=== PATIENT | female | born 1980 | race Caucasian/White ===

== ENCOUNTER 2023-03-16 17:56 | Emergency (ER) | payer BC, SELFPAY ==
[2023-03-16 18:04] VITALS: BP 120/79; PULSE 111; RESP 18; TEMP 37.3; O2SAT 94; BMI 36.6
--- NOTE | 2023-03-16 18:25 | ED.GENADULT ---
HPI - General Adult General Time Seen by Provider: 18:25 Date Seen: 03/16/23 Chief complaint: Insect Bite Stated complaint: Bee stings, multiple Time Seen by Provider: 03/16/23 18:07 Source: patient Mode of arrival: ambulatory Limitations: no limitations History of Present Illness HPI narrative: Patient is a 42-year-old female with no pertinent medical problems presenting to the emergency department after multiple bee stings. She was doing [employer] work around 1730 when about 15-20 bees surrounded and stung her. She says she has done all around her body. This includes her face, hands, back, feet, arms. States she took ibuprofen prior to arrival because of the pain. States that has not started helping yet. Has not taken any other medications. Denies chest pain, shortness of breath, nausea, vomiting, fevers, chills, headache, lightheadedness, dizziness. Denies any history of allergic reactions. Related Data Home Medications Medication Instructions Recorded Confirmed No Known Home Medications 03/16/23 03/16/23 Allergies Allergy/AdvReac Type Severity Reaction Status Date / Time No Known Drug Allergies Allergy Verified 03/16/23 18:08 [facility] Social History Smoking Status: Current every day smoker What tobacco products do you use: cigarettes Smoking packs per day: 1 Smoking cigarettes per day: 20.0 Do you use any of these nicotine containing products: None How often do you have a drink containing alcohol: 2-3 times a week How many standard drinks containing alcohol do you have on a typical day: 3 or 4 How often do you have six or more drinks on one occasion: Never AUDIT-C Alcohol total score: 4 Non-prescribed substance use: denies use Exam Narrative: Exam Narrative: Const: Well-nourished, Well-developed, in mild distress Eyes: PERRL, no conjunctival injection, and symmetrical lids ENMT: Atraumatic external nose and ears. Moist mucous membranes. Neck: Symmetric, trachea midline, No thyromegaly. CVS: RRR, No murmurs or gallops. Peripheral pulses 2+ and equal in all extremities RESP: Unlabored respiratory effort. Clear to auscultation bilaterally. GI: Nontender/Nondistended, No rebound or guarding. MSK:Extremities w/o deformity, Normal Active ROM Skin: Warm, Dry. Area swelling seen to the dorsal aspect of the left hand with a erythematous rash seen throughout her body Neuro: Normal Muscle tone, No focal neurological deficits. Psych: Awake, Alert, & Oriented x3. Appropriate mood and affect. Const: Vital Signs, click to edit/add: Vital Signs - 24 hr 03/16/23 18:04 03/16/23 18:34 03/16/23 19:53 Temperature 99.2 F Pulse Rate [Pulse Oximeter] 111 H 101 H 98 Respiratory Rate 18 Blood Pressure [Ri t Upper Arm] 120/79 126/83 106/69 Pulse Oximetry 94 90 96 Oxygen Delivery Me thod Room Air Room Air Room Air Course Vital Signs Vital signs: Initial Vital Signs Temperature 99.2 F 03/16/23 18:04 Temperature Source Temporal Artery Scan 03/16/23 18:04 Pulse Rate 111 H 03/16/23 18:04 Pulse Rhythm Regular 03/16/23 18:04 Pulse Strength 3+ Normal 03/16/23 18:04 Respiratory Rate 18 03/16/23 18:04 Blood Pressure 120/79 03/16/23 18:04 Blood Pressure Mean 92 03/16/23 18:04 Blood Pressure Position Sitting 03/16/23 18:04 Pulse Oximetry 94 03/16/23 18:04 Oxygen Delivery Method Room Air 03/16/23 18:04 Vital Signs Temperature 99.2 F 03/16/23 18:04 Pulse Rate 111 H 03/16/23 18:04 Respiratory Rate 18 03/16/23 18:04 Blood Pressure 120/79 03/16/23 18:04 Pulse Oximetry 94 03/16/23 18:04 Oxygen Delivery Method Room Air 03/16/23 18:04 Temperature 99.2 F 03/16/23 18:04 Pulse Rate 98 03/16/23 19:53 Respiratory Rate 18 03/16/23 18:04 Blood Pressure 106/69 03/16/23 19:53 Pulse Oximetry 96 03/16/23 19:53 Oxygen Delivery Method Room Air 03/16/23 19:53 Medical Decision Making MDM Narrative Medical decision making narrative: Patient is 6 year female presenting to emergency department after multiple bee stings. No history of allergies but she states she is very itchy uncomfortable. No clear urticaria but there is an erythematous rash seen wherever she was stung and also a area of swelling noted dorsal aspect of the left hand. This will give her Benadryl, steroids, Pepcid. After she received these medications the rash appears to be improving along with the area of swelling. She says she feels much better at this time. We monitored the patient for 2 hours and she is doing well and showing no signs of anaphylaxis at this time. No clear bee sting as could be seen on the patient's body. It is unclear if this was a true allergic reaction amorphous local reaction from being stung. At this time and does not appear to be true allergic reaction. Patient be discharged home and she is agreeable to this plan. Discharge Plan Discharge Clinical Impression: Accidental bee sting Patient Disposition: Home, Self-Care Condition: Stable Instructions: Insect Bite or Sting (ED) Additional Instructions: Take Benadryl and ibuprofen at home for the itching and pain. Return for new or worsening symptoms. If he develops difficulty breathing, abdominal pain, nausea/vomiting or other concerning symptoms please return to emergency department immediately Prescriptions: No Action No Known Home Medications Follow Up/Referrals: Ivette Zamudio MD [Primary Care Provider] - Stand Alone Forms: [employer] Info Instructions
[2023-03-16] MEDS: FAMOTIDINE 20 MG TABLET 40 MG PO (18:31)
[2023-03-16] MEDS: diphenhydrAMINE 25 MG CAPSULE 50 MG PO (18:31)
[2023-03-16] MEDS: predniSONE 20 MG TABLET 40 MG PO (18:31)
[2023-03-16 18:34] VITALS: BP 126/83; PULSE 101; O2SAT 90
[2023-03-16 19:53] VITALS: BP 106/69; PULSE 98; O2SAT 96
--- NOTE | 2023-03-16 20:13 | ED.NURSE ---
pt was discharged and ambulated out of the ED. later was alerted by the front desk clerk that a pt was laying in the entry way, ghost writer went outside to check on the pt. It was hiro, pt was diaphoretic and appeared to have vomited. pt stated she was fine and just got really hot. ghost writer asked pt if she fell, she denied falling, hitting her head, or LOC. pt appeared to have a red raised manas under her right eye. ghost writer along with other staff encouraged pt to come back into the ED to be seen. pt refused to enter and be seen again, stating my daughter is almost here.
--- NOTE | 2023-03-16 20:20 | ED.NURSE ---
operations staff specialist security notified by Registration that patient was lying on the ground outside under the building awning. This lyric writer, Johann Renteria RN., and police patrol officer came to patient's aide. Patient was lying on her right side on the ground with vomit on the right side of her face, in her hair, and on the ground. New dark red manas noted under right eye. Patient extremely diaphoretic. Patient assisted to sitting position. Witness to pt's episode stated patient was unconscious when they got next to her. Patient told this lyric writer I'm ok, I promise. I just got hot and needed fresh air. This lyric writer asked x 4 if patient would come back in to be seen by provider. Patient refused each time stating her daughter was on her way to get her and that she was fine. Dr. Marie notified of event. Security able to access cameras to provide clarity of the event. This was reviewed by Dr. Marie. He attempted to exit building to talk to the patient, but she was not there upon exiting the building.
== END 2023-03-16 19:59 | disposition home or self-care (01) ==
PROVIDERS: Emergency Provider Student in an Organized Health Care Education/Training Program; PCP Family Medicine
DX: T63.441A Toxic effect of venom of bees, accidental (unintentional), initial encounter (principal)
CPT/HCPCS: 99283; A9270; J7512